=== PATIENT | male | born 1980 | race American Indian/Alaskan Native ===

== ENCOUNTER 2017-02-25 17:46 | Emergency (ER) | payer SELFPAY ==
[2017-02-25 18:23] VITALS: BP 136/82
== END 2017-02-26 05:17 | disposition left against medical advice (07) ==
LOC: ED 17:46
DX: R07.9 Chest pain, unspecified (principal); Z53.21 Procedure and treatment not carried out due to patient leaving prior to being seen by health care provider
CPT/HCPCS: 93005; 93010